=== PATIENT | female | born 1990 | race Hispanic/Latino ===

== ENCOUNTER 2019-02-10 18:59 | Inpatient (IN) | payer MEDICAID ==
[2019-02-11] MEDS ORDERED: LIDOCAINE (2%) 20 MG/1 ML VIAL 20 ML MDV INFILTRATI ONE (01:36)
[2019-02-11] MEDS ORDERED: ePHEDrine SULFATE 50 MG/1 ML INJ IV PRN (01:36)
[2019-02-11] MEDS ORDERED: MINERAL OIL 30 ML ORAL LIQD PO PRN (01:36)
[2019-02-11] MEDS ORDERED: fentaNYL 100 MCG/2 ML INJ IV PRN (01:36)
[2019-02-11] MEDS ORDERED: TERBUTALINE 1 MG/1 ML INJ SUB-Q PRN (01:36)
[2019-02-11] MEDS ORDERED: TERBUTALINE 1 MG/1 ML INJ IVP PRN (01:36)
[2019-02-11] MEDS ORDERED: OXYTOCIN 20 UNIT/1000ML DRIP 20 UNITS/1,000 ML BAG IV SCH ×2 (02:00→14:02)
[2019-02-11 02:11] LABS: Hematocrit 31.2 % (30.3-42.9); Hemoglobin 10.7 gm/dl (10.1-14.3); Mean Corpuscular HGB Conc 34 % (30-34); Mean Corpuscular Volume 84 fl (79-97); Platelet Count 202 K/mm3 (140-440)
[2019-02-11] MEDS: LACTATED RINGERS 1,000 ML IV SCH ×3 (02:51→06:42)
[2019-02-11] MEDS ORDERED: SODIUM CHLORIDE P/F VIAL 10 ML 10 ML ONE (03:32)
[2019-02-11] MEDS ORDERED: DEXMEDETOMIDINE 200 MCG/2 ML VIAL IV ONE (03:32)
[2019-02-11] MEDS ORDERED: NALOXONE 2 MG/2 ML INJ IV PRN (03:50)
--- NOTE | 2019-02-11 03:51 | Anesthesia Consultation ---
Anesthesia Consult and Med Hx Date of service: 02/11/19 - Airway Anesthetic Teeth Evaluation: Good ROM Head & Neck: Adequate Mental/Hyoid Distance: Adequate Mallampati Class: Class II Intubation Access Assessment: Probably Good - Pulmonary Exam CTA: Yes - Cardiac Exam Cardiac Exam: RRR - Pre-Operative Health Status ASA Pre-Surgery Classification: ASA2 Proposed Anesthetic Plan: Epidural - Pulmonary Hx Asthma: No COPD: No - Cardiovascular System Hx Hypertension: No - Central Nervous System Hx Seizures: No Hx Psychiatric Problems: No - Endocrine Hx Renal Disease: No Hx End Stage Renal Disease: No Hx Hypothyroidism: No Hx Hyperthyroidism: No - Hematic Hx Anemia: No Hx Sickle Cell Disease: No - Other Systems Hx Alcohol Use: No
[2019-02-11] MEDS ORDERED: fentaNYL-BUPIV 2 MCG/ML-0.125% 200 MCG/100 ML BAG EPIDURAL SCH (04:00)
[2019-02-11] MEDS: ePHEDrine SULFATE 50 MG/1 ML INJ IV PRN ×2 (04:04→04:20)
[2019-02-11] MEDS ORDERED: HETASTARCH 6% 500 ML IV ONE (04:52)
--- NOTE | 2019-02-11 06:22 | History and Physical Report ---
History of Present Illness Date of examination: 02/11/19 Date of admission: 02/11/19 01:36 Chief complaint: Labor History of present illness: Past History : 2 Term Births: 1 Premature Births: 0 Living Children: 1 Para: 1 Mult. Births: 0 Prev : 0 Aborta: 0 Elect. Ab: 0 Spont. Ab: 0 Ectopics: 0 # 1 Delivery date: 11/17/2013 Weeks Gestation: 40 labor: no Delivery type: Hours of labor: 24 Anesthesia type: epidural Delivery location: [facility] [place] Sex: Female weight: 7-3 Name: Simi Comments: elective induction Past Medical History: Anxiety Past Surgical History: Negative Past Surgical History Family History Summary: Other family member - Has No Family History of Ovarvian Cancer - Entered On: 07/07/2018 Other family member - Has No Family History of Colon Cancer - Entered On: 07/07/2018 Other family member - Has Family History of Hypertension - Entered On: 07/07/2018 Other family member - Has Family History Breast Cancer - Entered On: 07/07/2018 Social History: Marital Status: Children: 1 Occupation: [employer] Past Medical History 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 of genital herpes: no Genetic History Congenital Heart Defect: Mom: no Dad: no Gaurav Disease: Mom: no Dad: no Thalassemia Mom: no Dad: no Neural Tube Defect Mom: no Dad: no Down's Syndrome Mom: no Dad: no Anup-Sachs Mom: no Dad: no Sickle Cell Disease/Trait Mom: no Dad: no Hemophilia Mom: no Dad: no Muscular Dystrophy Mom: no Dad: no Cystic Fibrosis Mom: no Dad: no David Chorea Mom: no Dad: no Mental Retardation Mom: no Dad: no Fragile X Mom: no Dad: no Other Genetic/Chromosomal Disorder Mom: no Dad: no Child w/other defect Mom: no Dad: no Active Medications (reviewed today): None Current Allergies (reviewed today): No known allergies Past History - Obstetrical History Expected Date of Delivery: 02/11/19 Actual Gestation: 40 Week(s) 0 Day(s) : 2 Medications and Allergies Allergies Allergy/AdvReac Type Severity Reaction Status Date / Time No Known Allergies Allergy Unverified 02/10/19 19:02 Active Meds: Active Medications Ephedrine Sulfate (Ephedrine Sulfate) 10 mg IV Q2M PRN PRN Reason: Hypotension Ephedrine Sulfate (Ephedrine Sulfate) 10 mg IV Q2M PRN PRN Reason: Hypotension Last Admin: 02/11/19 04:20 Dose: 10 mg Documented by: Fentanyl (Sublimaze) 100 mcg IV Q2H PRN PRN Reason: Labor Pain Last Admin: 02/11/19 02:50 Dose: 100 mcg Documented by: Oxytocin/Sodium Chloride (Pitocin/Ns 20 Unit/1000ml Drip) 20 units in 1,000 mls @ 125 mls/hr IV DIRECT BRENDAN Lactated Ringer's (Lactated Ringers) 1,000 mls @ 125 mls/hr IV DIRECT BRENDAN Last Admin: 02/11/19 04:04 Dose: 125 mls/hr Documented by: Fentanyl/Bupivacaine/Sodium Chlor (Fentanyl-Bupiv 2 Mcg/Ml-0.125%) 200 mcg in 100 mls @ 12 mls/hr EPIDURAL TITR BRENDAN; Protocol Last Admin: 02/11/19 04:13 Dose: 12 mls/hr Documented by: Oxytocin/Sodium Chloride (Pitocin/Ns 30 Unit/500ml) 30 units in 500 mls @ 2 mls/hr IV TITR BRENDAN; Protocol Mineral Oil (Mineral Oil) 30 ml PO QHS PRN PRN Reason: Constipation Naloxone HCl (Naloxone) 0.2 mg IV Q5M PRN PRN Reason: Respiratory sedation Terbutaline Sulfate (Brethine) 0.25 mg SUB-Q ONCE PRN PRN Reason: Hyperstimulation/Hypertonicity Terbutaline Sulfate (Brethine) 0.25 mg IVP ONCE PRN PRN Reason: Hyperstimulation/Hypertonicity Review of Systems All systems: negative Genitourinary: contractions - Vital Signs Vital signs: Vital Signs Temp Resp 97.8 F 18 02/11/19 02:34 02/11/19 02:34 Temp Pulse Resp BP Pulse Ox 97.8 F 105 H 18 105/58 94 02/11/19 02:34 02/11/19 06:14 02/11/19 02:34 02/11/19 06:11 02/11/19 06:14 - Physical Exam Breasts: Positive: deferred Lungs: Positive: Normal air movement Abdomen: Positive: normal appearance, soft. Negative: distention Genitourinary (Female): Positive: normal external genitalia, normal perenium Vulva: both: normal Uterus: Positive: enlarged. Negative: tender Anus/Rectum: Positive: normal perianal skin Extremities: Positive: normal. Negative: tenderness, edema - Obstetrical FHR: category 1 Cervical Dilatation: 7 Cervical Effacement Percentage: 70 station: -2, soft, midline, bulging bag Uterine Contraction Pattern: Irregular Results Result Diagrams: 02/11/19 01:50 All other labs normal. Assessment and Plan - Patient Problems (1) 40 weeks gestation of Current Visit: Yes Status: Acute (2) Active labor Current Visit: Yes Status: Acute Plan to address problem: Anticipate vaginal delivery
[2019-02-11] MEDS ORDERED: OXYTOCIN DRIP 30 UNITS/500 ML BAG IV SCH (07:00)
--- NOTE | 2019-02-11 07:22 | Progress Note ---
Assessment and Plan patient resting w/o complaints, denies urge to push. Pitocin started as ctx became irregular after epidural. encouraged pt to call when she feels rectal pressure. - Patient Problems (1) 40 weeks gestation of Current Visit: Yes Status: Acute (2) Active labor Current Visit: Yes Status: Acute Subjective - Subjective Date of service: 02/11/19 Principal diagnosis: IUP @ 40 weeks, labor Patient reports: no new complaints (comfortable with epidural) Objective - Vital Signs Vital Signs: Vital Signs - 12hr 02/11/19 02/11/19 02/11/19 02:34 02:49 03:18 Temperature 97.8 F Pulse Rate 113 H 118 H Respiratory 18 Rate Blood Pressure 110/66 118/70 O2 Sat by Pulse Oximetry 02/11/19 02/11/19 02/11/19 03:27 03:32 03:37 Temperature Pulse Rate 119 H 125 H 114 H Respiratory Rate Blood Pressure O2 Sat by Pulse 99 99 98 Oximetry 02/11/19 02/11/19 02/11/19 03:41 03:42 03:44 Temperature Pulse Rate 121 H 122 H 121 H Respiratory Rate Blood Pressure 115/69 112/68 O2 Sat by Pulse 96 Oximetry 02/11/19 02/11/19 02/11/19 03:53 03:56 03:59 Temperature Pulse Rate 126 H 118 H 118 H Respiratory Rate Blood Pressure 90/55 102/52 88/50 O2 Sat by Pulse Oximetry 02/11/19 02/11/19 02/11/19 04:02 04:04 04:07 Temperature Pulse Rate 114 H 111 H 116 H Respiratory Rate Blood Pressure 86/46 94/53 89/52 O2 Sat by Pulse Oximetry 02/11/19 02/11/19 02/11/19 04:10 04:13 04:15 Temperature Pulse Rate 112 H 111 H 116 H Respiratory Rate Blood Pressure 92/53 85/48 85/48 O2 Sat by Pulse Oximetry 02/11/19 02/11/19 02/11/19 04:16 04:18 04:19 Temperature Pulse Rate 113 H 124 H 125 H Respiratory Rate Blood Pressure 87/52 95/52 O2 Sat by Pulse 97 Oximetry 02/11/19 02/11/19 02/11/19 04:22 04:23 04:25 Temperature Pulse Rate 121 H 120 H 122 H Respiratory Rate Blood Pressure 93/54 97/56 O2 Sat by Pulse 97 Oximetry 02/11/19 02/11/19 02/11/19 04:28 04:31 04:33 Temperature Pulse Rate 120 H 106 H 114 H Respiratory Rate Blood Pressure 89/50 96/52 O2 Sat by Pulse 97 97 Oximetry 02/11/19 02/11/19 02/11/19 04:34 04:38 04:40 Temperature Pulse Rate 120 H 108 H 105 H Respiratory Rate Blood Pressure 88/51 O2 Sat by Pulse 97 94 Oximetry 02/11/19 02/11/19 02/11/19 04:43 04:45 04:48 Temperature Pulse Rate 104 H 102 H 102 H Respiratory Rate Blood Pressure O2 Sat by Pulse 95 94 91 Oximetry 02/11/19 02/11/19 02/11/19 04:50 04:53 04:57 Temperature Pulse Rate 106 H 107 H 105 H Respiratory Rate Blood Pressure 92/54 O2 Sat by Pulse 94 96 93 Oximetry 02/11/19 02/11/19 02/11/19 04:58 05:03 05:05 Temperature Pulse Rate 100 H 109 H 106 H Respiratory Rate Blood Pressure 78/43 O2 Sat by Pulse 94 96 Oximetry 02/11/19 02/11/19 02/11/19 05:08 05:11 05:13 Temperature Pulse Rate 99 H 108 H 105 H Respiratory Rate Blood Pressure 80/43 O2 Sat by Pulse 96 98 Oximetry 02/11/19 02/11/19 02/11/19 05:16 05:17 05:18 Temperature Pulse Rate 106 H 102 H 121 H Respiratory Rate Blood Pressure 83/51 O2 Sat by Pulse 94 98 Oximetry 02/11/19 02/11/19 02/11/19 05:21 05:22 05:23 Temperature Pulse Rate 118 H 114 H 117 H Respiratory Rate Blood Pressure 90/50 O2 Sat by Pulse 94 95 Oximetry 02/11/19 02/11/19 02/11/19 05:27 05:28 05:31 Temperature Pulse Rate 103 H 109 H 106 H Respiratory Rate Blood Pressure 95/53 80/45 O2 Sat by Pulse 94 Oximetry 02/11/19 02/11/19 02/11/19 05:33 05:36 05:38 Temperature Pulse Rate 105 H 113 H 98 H Respiratory Rate Blood Pressure 87/50 O2 Sat by Pulse 95 98 Oximetry 02/11/19 02/11/19 02/11/19 05:42 05:43 05:46 Temperature Pulse Rate 100 H 100 H 102 H Respiratory Rate Blood Pressure 100/56 100/57 O2 Sat by Pulse 100 Oximetry 02/11/19 02/11/19 02/11/19 05:48 05:52 05:53 Temperature Pulse Rate 105 H 97 H 101 H Respiratory Rate Blood Pressure 107/59 O2 Sat by Pulse 99 98 Oximetry 02/11/19 02/11/19 02/11/19 05:56 05:58 05:59 Temperature Pulse Rate 100 H 104 H 107 H Respiratory Rate Blood Pressure 103/55 O2 Sat by Pulse 98 94 Oximetry 02/11/19 02/11/19 02/11/19 06:01 06:03 06:06 Temperature Pulse Rate 99 H 98 H 100 H Respiratory Rate Blood Pressure 107/58 101/59 O2 Sat by Pulse 99 Oximetry 02/11/19 02/11/19 02/11/19 06:08 06:11 06:13 Temperature Pulse Rate 105 H 105 H 105 H Respiratory Rate Blood Pressure 105/58 O2 Sat by Pulse 98 98 Oximetry 02/11/19 02/11/19 02/11/19 06:14 06:18 06:19 Temperature Pulse Rate 105 H 102 H 109 H Respiratory Rate Blood Pressure 109/58 O2 Sat by Pulse 94 95 Oximetry 02/11/19 02/11/19 02/11/19 06:23 06:26 06:28 Temperature 98.2 F Pulse Rate 108 H 108 H 113 H Respiratory 17 Rate Blood Pressure 101/57 O2 Sat by Pulse 98 97 Oximetry 02/11/19 02/11/19 02/11/19 06:33 06:38 06:43 Temperature Pulse Rate 106 H 109 H 108 H Respiratory Rate Blood Pressure 109/61 O2 Sat by Pulse 97 96 97 Oximetry 02/11/19 02/11/19 02/11/19 06:46 06:48 06:53 Temperature Pulse Rate 110 H 115 H 103 H Respiratory Rate Blood Pressure 105/56 O2 Sat by Pulse 99 98 Oximetry 02/11/19 02/11/19 02/11/19 06:55 06:57 06:58 Temperature Pulse Rate 105 H 101 H 102 H Respiratory Rate Blood Pressure 102/55 O2 Sat by Pulse 94 96 Oximetry 02/11/19 02/11/19 02/11/19 07:00 07:03 07:07 Temperature Pulse Rate 104 H 104 H 100 H Respiratory Rate Blood Pressure 99/58 O2 Sat by Pulse 94 96 Oximetry 02/11/19 02/11/19 02/11/19 07:08 07:13 07:16 Temperature Pulse Rate 102 H 98 H 114 H Respiratory Rate Blood Pressure 94/53 O2 Sat by Pulse 96 96 Oximetry 02/11/19 07:18 Temperature Pulse Rate 103 H Respiratory Rate Blood Pressure O2 Sat by Pulse 96 Oximetry - Exam Breasts: normal Cardiovascular: Regular rate Lungs: Normal air movement Abdomen: Present: normal appearance, soft Vulva: both: normal Uterus: Present: normal, fundal height above umbilicus FHR: auscultation normal, category 1 Uterine Contraction Monitor Mode: External Uterine Contraction Pattern: Regular Uterine Tone Measurement Phase: Contraction Uterine Contraction Intensity: Moderate Extremities: normal Deep Tendon Reflex Grade: Normal +2 - Labs Labs: Laboratory Results - last 24 hr 02/11/19 02/11/19 02/11/19 01:50 01:50 01:50 WBC 10.3 RBC 3.70 Hgb 10.7 Hct 31.2 MCV 84 MCH 29 MCHC 34 RDW 14.0 Plt Count 202 Syphilis IgG Antibody Non-reactive Blood Type A POSITIVE Antibody Screen Negative
--- NOTE | 2019-02-11 08:37 | Progress Note ---
Assessment and Plan A: 28 y.o. 40+ weeks in active labor. Pt comfortable with epidural. Pt states she nair not think water broke. P: SVE 8/80/0. Attempted ROM, no bag palpated and no fluid noted. Continue with pitocin per protocol. Antipate . Subjective - Subjective Date of service: 02/11/19 (Pt comfortable with epidural.) Principal diagnosis: IUP @ 40 weeks, labor Patient reports: no new complaints (comfortable with epidural) Objective - Vital Signs Vital Signs: Vital Signs - 12hr 02/11/19 02/11/19 02/11/19 02:34 02:49 03:18 Temperature 97.8 F Pulse Rate 113 H 118 H Respiratory 18 Rate Blood Pressure 110/66 118/70 Blood Pressure [Right] O2 Sat by Pulse Oximetry 02/11/19 02/11/19 02/11/19 03:27 03:32 03:37 Temperature Pulse Rate 119 H 125 H 114 H Respiratory Rate Blood Pressure Blood Pressure [Right] O2 Sat by Pulse 99 99 98 Oximetry 02/11/19 02/11/19 02/11/19 03:41 03:42 03:44 Temperature Pulse Rate 121 H 122 H 121 H Respiratory Rate Blood Pressure 115/69 112/68 Blood Pressure [Right] O2 Sat by Pulse 96 Oximetry 02/11/19 02/11/19 02/11/19 03:53 03:56 03:59 Temperature Pulse Rate 126 H 118 H 118 H Respiratory Rate Blood Pressure 90/55 102/52 88/50 Blood Pressure [Right] O2 Sat by Pulse Oximetry 02/11/19 02/11/19 02/11/19 04:02 04:04 04:07 Temperature Pulse Rate 114 H 111 H 116 H Respiratory Rate Blood Pressure 86/46 94/53 89/52 Blood Pressure [Right] O2 Sat by Pulse Oximetry 02/11/19 02/11/19 02/11/19 04:10 04:13 04:15 Temperature Pulse Rate 112 H 111 H 116 H Respiratory Rate Blood Pressure 92/53 85/48 85/48 Blood Pressure [Right] O2 Sat by Pulse Oximetry 02/11/19 02/11/19 02/11/19 04:16 04:18 04:19 Temperature Pulse Rate 113 H 124 H 125 H Respiratory Rate Blood Pressure 87/52 95/52 Blood Pressure [Right] O2 Sat by Pulse 97 Oximetry 02/11/19 02/11/19 02/11/19 04:22 04:23 04:25 Temperature Pulse Rate 121 H 120 H 122 H Respiratory Rate Blood Pressure 93/54 97/56 Blood Pressure [Right] O2 Sat by Pulse 97 Oximetry 02/11/19 02/11/19 02/11/19 04:28 04:31 04:33 Temperature Pulse Rate 120 H 106 H 114 H Respiratory Rate Blood Pressure 89/50 96/52 Blood Pressure [Right] O2 Sat by Pulse 97 97 Oximetry 02/11/19 02/11/19 02/11/19 04:34 04:38 04:40 Temperature Pulse Rate 120 H 108 H 105 H Respiratory Rate Blood Pressure 88/51 Blood Pressure [Right] O2 Sat by Pulse 97 94 Oximetry 02/11/19 02/11/19 02/11/19 04:43 04:45 04:48 Temperature Pulse Rate 104 H 102 H 102 H Respiratory Rate Blood Pressure Blood Pressure [Right] O2 Sat by Pulse 95 94 91 Oximetry 02/11/19 02/11/19 02/11/19 04:50 04:53 04:57 Temperature Pulse Rate 106 H 107 H 105 H Respiratory Rate Blood Pressure 92/54 Blood Pressure [Right] O2 Sat by Pulse 94 96 93 Oximetry 02/11/19 02/11/19 02/11/19 04:58 05:03 05:05 Temperature Pulse Rate 100 H 109 H 106 H Respiratory Rate Blood Pressure 78/43 Blood Pressure [Right] O2 Sat by Pulse 94 96 Oximetry 02/11/19 02/11/19 02/11/19 05:08 05:11 05:13 Temperature Pulse Rate 99 H 108 H 105 H Respiratory Rate Blood Pressure 80/43 Blood Pressure [Right] O2 Sat by Pulse 96 98 Oximetry 02/11/19 02/11/19 02/11/19 05:16 05:17 05:18 Temperature Pulse Rate 106 H 102 H 121 H Respiratory Rate Blood Pressure 83/51 Blood Pressure [Right] O2 Sat by Pulse 94 98 Oximetry 02/11/19 02/11/19 02/11/19 05:21 05:22 05:23 Temperature Pulse Rate 118 H 114 H 117 H Respiratory Rate Blood Pressure 90/50 Blood Pressure [Right] O2 Sat by Pulse 94 95 Oximetry 02/11/19 02/11/19 02/11/19 05:27 05:28 05:31 Temperature Pulse Rate 103 H 109 H 106 H Respiratory Rate Blood Pressure 95/53 80/45 Blood Pressure [Right] O2 Sat by Pulse 94 Oximetry 02/11/19 02/11/19 02/11/19 05:33 05:36 05:38 Temperature Pulse Rate 105 H 113 H 98 H Respiratory Rate Blood Pressure 87/50 Blood Pressure [Right] O2 Sat by Pulse 95 98 Oximetry 02/11/19 02/11/19 02/11/19 05:42 05:43 05:46 Temperature Pulse Rate 100 H 100 H 102 H Respiratory Rate Blood Pressure 100/56 100/57 Blood Pressure [Right] O2 Sat by Pulse 100 Oximetry 02/11/19 02/11/19 02/11/19 05:48 05:52 05:53 Temperature Pulse Rate 105 H 97 H 101 H Respiratory Rate Blood Pressure 107/59 Blood Pressure [Right] O2 Sat by Pulse 99 98 Oximetry 02/11/19 02/11/19 02/11/19 05:56 05:58 05:59 Temperature Pulse Rate 100 H 104 H 107 H Respiratory Rate Blood Pressure 103/55 Blood Pressure [Right] O2 Sat by Pulse 98 94 Oximetry 02/11/19 02/11/19 02/11/19 06:01 06:03 06:06 Temperature Pulse Rate 99 H 98 H 100 H Respiratory Rate Blood Pressure 107/58 101/59 Blood Pressure [Right] O2 Sat by Pulse 99 Oximetry 02/11/19 02/11/19 02/11/19 06:08 06:11 06:13 Temperature Pulse Rate 105 H 105 H 105 H Respiratory Rate Blood Pressure 105/58 Blood Pressure [Right] O2 Sat by Pulse 98 98 Oximetry 02/11/19 02/11/19 02/11/19 06:14 06:18 06:19 Temperature Pulse Rate 105 H 102 H 109 H Respiratory Rate Blood Pressure 109/58 Blood Pressure [Right] O2 Sat by Pulse 94 95 Oximetry 02/11/19 02/11/19 02/11/19 06:23 06:26 06:28 Temperature 98.2 F Pulse Rate 108 H 108 H 113 H Respiratory 17 Rate Blood Pressure 101/57 Blood Pressure [Right] O2 Sat by Pulse 98 97 Oximetry 02/11/19 02/11/19 02/11/19 06:33 06:38 06:43 Temperature Pulse Rate 106 H 109 H 108 H Respiratory Rate Blood Pressure 109/61 Blood Pressure [Right] O2 Sat by Pulse 97 96 97 Oximetry 02/11/19 02/11/19 02/11/19 06:46 06:48 06:53 Temperature Pulse Rate 110 H 115 H 103 H Respiratory Rate Blood Pressure 105/56 Blood Pressure [Right] O2 Sat by Pulse 99 98 Oximetry 02/11/19 02/11/19 02/11/19 06:55 06:57 06:58 Temperature Pulse Rate 105 H 101 H 102 H Respiratory Rate Blood Pressure 102/55 Blood Pressure [Right] O2 Sat by Pulse 94 96 Oximetry 02/11/19 02/11/19 02/11/19 07:00 07:03 07:07 Temperature Pulse Rate 104 H 104 H 100 H Respiratory Rate Blood Pressure 99/58 Blood Pressure [Right] O2 Sat by Pulse 94 96 Oximetry 02/11/19 02/11/19 02/11/19 07:08 07:13 07:16 Temperature Pulse Rate 102 H 98 H 114 H Respiratory Rate Blood Pressure 94/53 Blood Pressure [Right] O2 Sat by Pulse 96 96 Oximetry 02/11/19 02/11/19 02/11/19 07:18 07:23 07:27 Temperature Pulse Rate 103 H 103 H 103 H Respiratory Rate Blood Pressure 109/57 Blood Pressure [Right] O2 Sat by Pulse 96 96 Oximetry 02/11/19 02/11/19 02/11/19 07:28 07:33 07:37 Temperature Pulse Rate 106 H 110 H 106 H Respiratory Rate Blood Pressure 106/60 Blood Pressure [Right] O2 Sat by Pulse 98 99 Oximetry 02/11/19 02/11/19 02/11/19 07:38 07:43 07:46 Temperature 98.1 F Pulse Rate 104 H 104 H 102 H Respiratory 18 Rate Blood Pressure 102/56 Blood Pressure 106/60 [Right] O2 Sat by Pulse 97 97 Oximetry 02/11/19 02/11/19 02/11/19 07:48 07:53 07:57 Temperature Pulse Rate 113 H 103 H 99 H Respiratory Rate Blood Pressure 100/55 Blood Pressure [Right] O2 Sat by Pulse 98 98 Oximetry 02/11/19 02/11/19 02/11/19 07:58 08:03 08:08 Temperature Pulse Rate 100 H 101 H 108 H Respiratory Rate Blood Pressure 104/56 Blood Pressure [Right] O2 Sat by Pulse 95 95 96 Oximetry 02/11/19 02/11/19 02/11/19 08:13 08:17 08:18 Temperature Pulse Rate 112 H 110 H 106 H Respiratory Rate Blood Pressure 107/59 Blood Pressure [Right] O2 Sat by Pulse 99 100 Oximetry 02/11/19 02/11/19 02/11/19 08:23 08:27 08:28 Temperature Pulse Rate 106 H 100 H 109 H Respiratory Rate Blood Pressure 90/52 Blood Pressure [Right] O2 Sat by Pulse 100 100 Oximetry - Exam Uterine Contraction Monitor Mode: External Cervical Dilatation: 8 Cervical Effacement Percentage: 80 station: 0 Uterine Contraction Pattern: Regular Uterine Tone Measurement Phase: Resting Uterine Contraction Intensity: Moderate Extremities: normal - Labs Labs: Laboratory Results - last 24 hr 02/11/19 02/11/19 02/11/19 01:50 01:50 01:50 WBC 10.3 RBC 3.70 Hgb 10.7 Hct 31.2 MCV 84 MCH 29 MCHC 34 RDW 14.0 Plt Count 202 Syphilis IgG Antibody Non-reactive Blood Type A POSITIVE Antibody Screen Negative
--- NOTE | 2019-02-11 09:35 | Progress Note ---
Assessment and Plan A: 28 y.o. 40 + wks, active labor. Comfortable with epidural. AROM, clear fluid. P: Continue with Pitocin per protocol. Anticipate . Subjective - Subjective Date of service: 02/11/19 (AROM @ 0925 clear fluid) Principal diagnosis: IUP @ 40 weeks, labor Patient reports: no new complaints (comfortable with epidural) Objective - Vital Signs Vital Signs: Vital Signs - 12hr 02/11/19 02/11/19 02/11/19 02:34 02:49 03:18 Temperature 97.8 F Pulse Rate 113 H 118 H Respiratory 18 Rate Blood Pressure 110/66 118/70 Blood Pressure [Right] O2 Sat by Pulse Oximetry 02/11/19 02/11/19 02/11/19 03:27 03:32 03:37 Temperature Pulse Rate 119 H 125 H 114 H Respiratory Rate Blood Pressure Blood Pressure [Right] O2 Sat by Pulse 99 99 98 Oximetry 02/11/19 02/11/19 02/11/19 03:41 03:42 03:44 Temperature Pulse Rate 121 H 122 H 121 H Respiratory Rate Blood Pressure 115/69 112/68 Blood Pressure [Right] O2 Sat by Pulse 96 Oximetry 02/11/19 02/11/19 02/11/19 03:53 03:56 03:59 Temperature Pulse Rate 126 H 118 H 118 H Respiratory Rate Blood Pressure 90/55 102/52 88/50 Blood Pressure [Right] O2 Sat by Pulse Oximetry 02/11/19 02/11/19 02/11/19 04:02 04:04 04:07 Temperature Pulse Rate 114 H 111 H 116 H Respiratory Rate Blood Pressure 86/46 94/53 89/52 Blood Pressure [Right] O2 Sat by Pulse Oximetry 02/11/19 02/11/19 02/11/19 04:10 04:13 04:15 Temperature Pulse Rate 112 H 111 H 116 H Respiratory Rate Blood Pressure 92/53 85/48 85/48 Blood Pressure [Right] O2 Sat by Pulse Oximetry 02/11/19 02/11/19 02/11/19 04:16 04:18 04:19 Temperature Pulse Rate 113 H 124 H 125 H Respiratory Rate Blood Pressure 87/52 95/52 Blood Pressure [Right] O2 Sat by Pulse 97 Oximetry 02/11/19 02/11/19 02/11/19 04:22 04:23 04:25 Temperature Pulse Rate 121 H 120 H 122 H Respiratory Rate Blood Pressure 93/54 97/56 Blood Pressure [Right] O2 Sat by Pulse 97 Oximetry 02/11/19 02/11/19 02/11/19 04:28 04:31 04:33 Temperature Pulse Rate 120 H 106 H 114 H Respiratory Rate Blood Pressure 89/50 96/52 Blood Pressure [Right] O2 Sat by Pulse 97 97 Oximetry 02/11/19 02/11/19 02/11/19 04:34 04:38 04:40 Temperature Pulse Rate 120 H 108 H 105 H Respiratory Rate Blood Pressure 88/51 Blood Pressure [Right] O2 Sat by Pulse 97 94 Oximetry 02/11/19 02/11/19 02/11/19 04:43 04:45 04:48 Temperature Pulse Rate 104 H 102 H 102 H Respiratory Rate Blood Pressure Blood Pressure [Right] O2 Sat by Pulse 95 94 91 Oximetry 02/11/19 02/11/19 02/11/19 04:50 04:53 04:57 Temperature Pulse Rate 106 H 107 H 105 H Respiratory Rate Blood Pressure 92/54 Blood Pressure [Right] O2 Sat by Pulse 94 96 93 Oximetry 02/11/19 02/11/19 02/11/19 04:58 05:03 05:05 Temperature Pulse Rate 100 H 109 H 106 H Respiratory Rate Blood Pressure 78/43 Blood Pressure [Right] O2 Sat by Pulse 94 96 Oximetry 02/11/19 02/11/19 02/11/19 05:08 05:11 05:13 Temperature Pulse Rate 99 H 108 H 105 H Respiratory Rate Blood Pressure 80/43 Blood Pressure [Right] O2 Sat by Pulse 96 98 Oximetry 02/11/19 02/11/19 02/11/19 05:16 05:17 05:18 Temperature Pulse Rate 106 H 102 H 121 H Respiratory Rate Blood Pressure 83/51 Blood Pressure [Right] O2 Sat by Pulse 94 98 Oximetry 02/11/19 02/11/19 02/11/19 05:21 05:22 05:23 Temperature Pulse Rate 118 H 114 H 117 H Respiratory Rate Blood Pressure 90/50 Blood Pressure [Right] O2 Sat by Pulse 94 95 Oximetry 02/11/19 02/11/19 02/11/19 05:27 05:28 05:31 Temperature Pulse Rate 103 H 109 H 106 H Respiratory Rate Blood Pressure 95/53 80/45 Blood Pressure [Right] O2 Sat by Pulse 94 Oximetry 02/11/19 02/11/19 02/11/19 05:33 05:36 05:38 Temperature Pulse Rate 105 H 113 H 98 H Respiratory Rate Blood Pressure 87/50 Blood Pressure [Right] O2 Sat by Pulse 95 98 Oximetry 02/11/19 02/11/19 02/11/19 05:42 05:43 05:46 Temperature Pulse Rate 100 H 100 H 102 H Respiratory Rate Blood Pressure 100/56 100/57 Blood Pressure [Right] O2 Sat by Pulse 100 Oximetry 02/11/19 02/11/19 02/11/19 05:48 05:52 05:53 Temperature Pulse Rate 105 H 97 H 101 H Respiratory Rate Blood Pressure 107/59 Blood Pressure [Right] O2 Sat by Pulse 99 98 Oximetry 02/11/19 02/11/19 02/11/19 05:56 05:58 05:59 Temperature Pulse Rate 100 H 104 H 107 H Respiratory Rate Blood Pressure 103/55 Blood Pressure [Right] O2 Sat by Pulse 98 94 Oximetry 02/11/19 02/11/19 02/11/19 06:01 06:03 06:06 Temperature Pulse Rate 99 H 98 H 100 H Respiratory Rate Blood Pressure 107/58 101/59 Blood Pressure [Right] O2 Sat by Pulse 99 Oximetry 02/11/19 02/11/19 02/11/19 06:08 06:11 06:13 Temperature Pulse Rate 105 H 105 H 105 H Respiratory Rate Blood Pressure 105/58 Blood Pressure [Right] O2 Sat by Pulse 98 98 Oximetry 02/11/19 02/11/19 02/11/19 06:14 06:18 06:19 Temperature Pulse Rate 105 H 102 H 109 H Respiratory Rate Blood Pressure 109/58 Blood Pressure [Right] O2 Sat by Pulse 94 95 Oximetry 02/11/19 02/11/19 02/11/19 06:23 06:26 06:28 Temperature 98.2 F Pulse Rate 108 H 108 H 113 H Respiratory 17 Rate Blood Pressure 101/57 Blood Pressure [Right] O2 Sat by Pulse 98 97 Oximetry 02/11/19 02/11/19 02/11/19 06:33 06:38 06:43 Temperature Pulse Rate 106 H 109 H 108 H Respiratory Rate Blood Pressure 109/61 Blood Pressure [Right] O2 Sat by Pulse 97 96 97 Oximetry 02/11/19 02/11/19 02/11/19 06:46 06:48 06:53 Temperature Pulse Rate 110 H 115 H 103 H Respiratory Rate Blood Pressure 105/56 Blood Pressure [Right] O2 Sat by Pulse 99 98 Oximetry 02/11/19 02/11/19 02/11/19 06:55 06:57 06:58 Temperature Pulse Rate 105 H 101 H 102 H Respiratory Rate Blood Pressure 102/55 Blood Pressure [Right] O2 Sat by Pulse 94 96 Oximetry 02/11/19 02/11/19 02/11/19 07:00 07:03 07:07 Temperature Pulse Rate 104 H 104 H 100 H Respiratory Rate Blood Pressure 99/58 Blood Pressure [Right] O2 Sat by Pulse 94 96 Oximetry 02/11/19 02/11/19 02/11/19 07:08 07:13 07:16 Temperature Pulse Rate 102 H 98 H 114 H Respiratory Rate Blood Pressure 94/53 Blood Pressure [Right] O2 Sat by Pulse 96 96 Oximetry 02/11/19 02/11/19 02/11/19 07:18 07:23 07:27 Temperature Pulse Rate 103 H 103 H 103 H Respiratory Rate Blood Pressure 109/57 Blood Pressure [Right] O2 Sat by Pulse 96 96 Oximetry 02/11/19 02/11/19 02/11/19 07:28 07:33 07:37 Temperature Pulse Rate 106 H 110 H 106 H Respiratory Rate Blood Pressure 106/60 Blood Pressure [Right] O2 Sat by Pulse 98 99 Oximetry 02/11/19 02/11/19 02/11/19 07:38 07:43 07:46 Temperature 98.1 F Pulse Rate 104 H 104 H 102 H Respiratory 18 Rate Blood Pressure 102/56 Blood Pressure 106/60 [Right] O2 Sat by Pulse 97 97 Oximetry 02/11/19 02/11/19 02/11/19 07:48 07:53 07:57 Temperature Pulse Rate 113 H 103 H 99 H Respiratory Rate Blood Pressure 100/55 Blood Pressure [Right] O2 Sat by Pulse 98 98 Oximetry 02/11/19 02/11/19 02/11/19 07:58 08:03 08:08 Temperature Pulse Rate 100 H 101 H 108 H Respiratory Rate Blood Pressure 104/56 Blood Pressure [Right] O2 Sat by Pulse 95 95 96 Oximetry 02/11/19 02/11/19 02/11/19 08:13 08:17 08:18 Temperature Pulse Rate 112 H 110 H 106 H Respiratory Rate Blood Pressure 107/59 Blood Pressure [Right] O2 Sat by Pulse 99 100 Oximetry 02/11/19 02/11/19 02/11/19 08:23 08:27 08:28 Temperature Pulse Rate 106 H 100 H 109 H Respiratory Rate Blood Pressure 90/52 Blood Pressure [Right] O2 Sat by Pulse 100 100 Oximetry 02/11/19 02/11/19 02/11/19 08:33 08:38 08:43 Temperature Pulse Rate 103 H 107 H 99 H Respiratory Rate Blood Pressure 90/55 Blood Pressure [Right] O2 Sat by Pulse 100 100 98 Oximetry 02/11/19 02/11/19 02/11/19 08:48 08:53 08:58 Temperature Pulse Rate 104 H 104 H 104 H Respiratory Rate Blood Pressure 93/55 100/54 Blood Pressure [Right] O2 Sat by Pulse 99 100 100 Oximetry 02/11/19 02/11/19 02/11/19 09:03 09:07 09:08 Temperature Pulse Rate 102 H 101 H 104 H Respiratory Rate Blood Pressure 97/52 Blood Pressure [Right] O2 Sat by Pulse 100 100 Oximetry 02/11/19 02/11/19 02/11/19 09:13 09:16 09:18 Temperature Pulse Rate 100 H 101 H 98 H Respiratory Rate Blood Pressure 99/57 Blood Pressure [Right] O2 Sat by Pulse 100 100 Oximetry 02/11/19 02/11/19 02/11/19 09:23 09:27 09:28 Temperature Pulse Rate 111 H 106 H 110 H Respiratory Rate Blood Pressure 115/67 Blood Pressure [Right] O2 Sat by Pulse 100 100 Oximetry - Exam Uterine Contraction Monitor Mode: External Cervical Dilatation: 8 (AROM, clear fluid) Cervical Effacement Percentage: 80 station: 0 Uterine Contraction Pattern: Regular Uterine Tone Measurement Phase: Resting Uterine Contraction Intensity: Moderate - Labs Labs: Laboratory Results - last 24 hr 02/11/19 02/11/19 02/11/19 01:50 01:50 01:50 WBC 10.3 RBC 3.70 Hgb 10.7 Hct 31.2 MCV 84 MCH 29 MCHC 34 RDW 14.0 Plt Count 202 Syphilis IgG Antibody Non-reactive Blood Type A POSITIVE Antibody Screen Negative
--- NOTE | 2019-02-11 11:36 | Procedure Note ---
OB Delivery Note - Delivery Date of Delivery: 02/11/19 ( of viable male ) Retail Merchandiser: AZUCENA STODDARD (Diamond Vasquez [facility] Mae) Estimated blood loss: other (350ml) - Vaginal Delivery presentation: vertex Delivery position: OA Intrapartum events: none Delivery augmentation: rupture of membranes Delivery monitor: external FHT, external uterine Route of delivery: Delivery placenta: spontaneous Episiotomy: none Delivery laceration: none Anesthesia: epidural Delivery comments: of viable male over intact perineum. Baby to mother's chest for baby for skin to skin. Cord clamped and cut after cessation of pulsation. 3 vessel cord. Placenta delivered, intact and complete. No lacerations to repair. EBL 350ml. Apgars 9/9. Weight 7lbs 8.6 ozs. Both mom and baby stable after delivery.
[2019-02-11] MEDS ORDERED: diphenhydrAMINE 25 MG CAP PO PRN (14:02)
[2019-02-11] MEDS ORDERED: WITCH HAZEL/ GLYCERIN PAD TP PRN (14:02)
[2019-02-11] MEDS ORDERED: MAGNESIUM HYDROXIDE (MOM) ORAL LIQD UDC PO PRN (14:02)
[2019-02-11] MEDS ORDERED: ACETAMINOPHEN 325 MG TAB PO PRN (14:02)
[2019-02-11] MEDS ORDERED: LANOLIN/ZINC/DIMETHICONE (LANSINOH) 7 GM TP PRN (14:02)
[2019-02-11] MEDS ORDERED: ONDANSETRON 4 MG/2 ML INJ IV PRN (14:02)
[2019-02-11] MEDS ORDERED: PROMETHAZINE 25 MG TAB PO PRN (14:02)
[2019-02-11] MEDS: IBUPROFEN 600 MG TAB PO SCH ×2 (15:30→19:50)
[2019-02-11 23:32] LABS: Hematocrit 27.5 % (30.3-42.9); Hemoglobin 9.5 gm/dl (10.1-14.3)
[2019-02-11] MEDS: DOCUSATE SODIUM 100 MG CAP PO SCH (23:50)
[2019-02-12] MEDS: IBUPROFEN 600 MG TAB PO SCH ×3 (00:05→12:21)
[2019-02-12] MEDS ORDERED: TETANUS,DIPH,PERTUSS(ACELL) VACCINE 0.5 ML SYRINGE IM ONE (06:00)
[2019-02-12] MEDS: DOCUSATE SODIUM 100 MG CAP PO SCH (09:53)
[2019-02-12] MEDS ORDERED: PRENATAL VIT27-FE FUMARATE-FOLIC ACID VIT TAB PO SCH (10:00)
--- NOTE | 2019-02-12 13:07 | Discharge Summary ---
Providers - Providers Date of Admission: 02/11/19 01:36 Date of discharge: 02/12/19 (desires d/c home) Attending physician: CARITO DELACRUZ Primary care physician: CARITO DELACRUZ Hospitalization Reason for admission: labor Condition: Good Pertinent studies: H&H 9.5/27.5, asymptomatic anemia from acute blood loss Procedures: Hospital course: uncomplicated and course Disposition: DC-01 TO HOME OR SELFCARE - Discharge Diagnoses (1) Vaginal delivery Status: Acute Core Measure Documentation - Palliative Care Palliative Care/ Comfort Measures: Not Applicable - Core Measures Any of the following diagnoses?: none Exam - Constitutional Vitals: Temp Pulse Resp BP Pulse Ox 97.8 F 74 18 103/64 97 02/12/19 08:18 02/12/19 08:18 02/12/19 08:18 02/12/19 08:18 02/12/19 08:18 General appearance: Present: no acute distress, well-nourished - EENT Eyes: Present: PERRL ENT: hearing intact, clear oral mucosa - Neck Neck: Present: supple, normal ROM - Respiratory Respiratory effort: normal Respiratory: bilateral: CTA - Cardiovascular Rhythm: regular - Extremities Extremities: No edema - Abdominal General gastrointestinal: Present: soft, non-tender, non-distended, normal bowel sounds Female genitourinary: Present: normal - Integumentary Integumentary: Present: clear, warm, dry - Musculoskeletal Musculoskeletal: gait normal, strength equal bilaterally - Psychiatric Psychiatric: appropriate mood/affect, intact judgment & insight - Neurologic Neurologic: CNII-XII intact, moves all extremities - Additional findings Additional findings: VSSAF, lochia scant, fundus firm Plan Activity: no restrictions Diet: regular Wound: open to air, keep clean and dry Follow up with: CARITO DELACRUZ MD [Primary Care Provider] - 7 Days (Congratulations! Please call [phone] to schedule your son's circumcision in 1 week and visit in 4 weeks. bring EMLA cream to your son's visit and await further teaching. Call for any questions or concerns.) Prescriptions: Lidocain2.5%/Prilocai2.5% [Emla] 1 applic TP ONCE #1 tube Ibuprofen [Motrin] 800 mg PO Q8HR PRN #30 tablet PRN Reason: Pain , Severe (7-10)
[2019-02-12 16:53] VITALS: BP 127/72
== END 2019-02-12 16:45 | disposition home or self-care (01) | DRG 775 ==
LOC: TRG 18:59 → LD 02-11 01:36 → OB 02-11 13:50
PROVIDERS: ADMIT Obstetrics & Gynecology; ATTEND Obstetrics & Gynecology
PROC: 10E0XZZ Delivery of Products of Conception, External Approach (ICD-10-PCS; principal; 2019-02-11)
PROC: 3E0R3BZ Introduction of Anesthetic Agent into Spinal Canal, Percutaneous Approach (ICD-10-PCS; 2019-02-11)
PROC: 00HU33Z Insertion of Infusion Device into Spinal Canal, Percutaneous Approach (ICD-10-PCS; 2019-02-11)
PROC: 3E0234Z Introduction of Serum, Toxoid and Vaccine into Muscle, Percutaneous Approach (ICD-10-PCS; 2019-02-12)
DX: O90.81 Anemia of the puerperium (principal); Z37.0 Single live birth; Z23 Encounter for immunization; D62 Acute posthemorrhagic anemia; Z3A.40 40 weeks gestation of pregnancy
CPT/HCPCS: 36415; 85014; 85018; 85027; 86592; 86850; 86900; 86901; 90471; 90715; G0378; A6250; J2590; J3010; J3490; J7120